=== PATIENT | female | born 1985 | race Caucasian/White ===

== ENCOUNTER 2024-07-29 09:51 | Emergency (ER) | payer BC ==
[~2024-07-29] VITALS: Ht 170.2 cm; Wt 70.8 kg
[2024-07-29 10:14] VITALS: BP 138/86; TEMP 98.3; O2SAT 99
== END 2024-07-29 10:10 | disposition home or self-care (01) ==
LOC: ER 09:51
DX: S43.085A Other dislocation of left shoulder joint, initial encounter (principal); X50.9XXA Other and unspecified overexertion or strenuous movements or postures, initial encounter; Y93.B4 Activity, pilates; Y92.89 Other specified places as the place of occurrence of the external cause; Y99.8 Other external cause status